=== PATIENT | female | born 1985 | race Caucasian/White ===

== ENCOUNTER 2017-04-23 21:33 | Emergency (ER) | payer MEDICAID ==
[2017-04-23 21:40] VITALS: BP 127/88
--- NOTE | 2017-04-23 22:05 | ED Physician Documentation ---
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 - Present Medications Home Medications: Ambulatory Orders Medication Instructions Recorded Confirmed Cephalexin [Keflex] 500 mg PO Q6HR 7 Days 01/24/16 - Allergies Allergies/Adverse Reactions: Allergies Allergy/AdvReac Type Severity Reaction Status Date / Time No Known Drug Allergies Allergy Verified 04/23/17 21:40 - Social History Does the pt smoke?: Yes Smoking Status: Current every day smoker Does the pt drink ETOH?: No Does the pt have substance abuse?: Yes Substance Use and Type: Heroin - Immunizations Immunizations are current?: Yes - POLST Patient has POLST: No Results - Vitals Vitals: Vital Signs - 24 hr 04/23/17 21:35 Temperature 37.2 C Heart Rate 97 Respiratory 17 Rate Blood Pressure 127/88 H O2 Saturation 100 Oxygen O2 Source Room air
== END 2017-04-23 22:10 | disposition left against medical advice (07) ==
LOC: ED 21:33
DX: Z53.21 Procedure and treatment not carried out due to patient leaving prior to being seen by health care provider (principal)

== ENCOUNTER 2017-07-13 19:49 | Outpatient (CLI) | payer MEDICAID | END 2017-07-13 19:50 | disposition home or self-care (01) | LOC: LAB 19:49 | DX: Z01.89 Encounter for other specified special examinations (principal) ==

== ENCOUNTER 2017-07-13 20:05 | Emergency (ER) | payer MEDICAID ==
--- NOTE | 2017-07-13 20:06 | ED Physician Documentation ---
History of Present Illness - Stated complaint Stated Complaint: [facility] - History obtained from History obtained from: Patient, Police - History of Present Illness Timing: Other (Brought in by state patrol for fit for shelter screening because of opiate abuse. There was a concern for potential abscess in the right upper extremity and she has been injecting there. 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 - Present Medications Home Medications: Ambulatory Orders Medication Instructions Recorded Confirmed Cephalexin [Keflex] 500 mg PO Q6HR 7 Days 01/24/16 - Allergies Allergies/Adverse Reactions: Allergies Allergy/AdvReac Type Severity Reaction Status Date / Time No Known Drug Allergies Allergy Verified 04/23/17 21:40 - Social History Does the pt smoke?: Yes Smoking Status: Current every day smoker Does the pt drink ETOH?: No Does the pt have substance abuse?: Yes - Immunizations Immunizations are current?: Yes - POLST Patient has POLST: No PD ED PE NORMAL - Vitals Vital signs reviewed: Yes - General General: Alert and oriented X 3, No acute distress - HEENT HEENT: PERRL, EOMI - Neck Neck: Supple, no meningeal sign, No bony TTP - Extremities Extremities: Other (Multiple track castillo in the antecubital fossa but there is no evidence of abscess at this time, no warmth or redness, full range of motion. ) - Neuro Neuro: Alert and oriented X 3, Normal speech Results - Vitals Vitals: Oxygen O2 Source Room air Departure - Departure Disposition: Home, Self Care Clinical Impression: Heroin abuse Condition: Stable
== END 2017-07-13 20:15 | disposition home or self-care (01) ==
LOC: ED 20:05
DX: F11.10 Opioid abuse, uncomplicated (principal)
CPT/HCPCS: 99281

== ENCOUNTER 2017-09-21 15:01 | Outpatient (CLI) | payer OTHER, MEDICAID | END 2017-09-21 15:02 | disposition home or self-care (01) | LOC: LAB 15:01 | PROVIDERS: ATTEND Pathology Blood Banking & Transfusion Medicine | DX: Z01.89 Encounter for other specified special examinations (principal) ==

== ENCOUNTER 2019-05-10 13:34 | Emergency (ER) | payer MEDICAID ==
--- NOTE | 2019-05-10 13:37 | ED Physician Documentation ---
PD HPI FEMALE - Stated complaint Stated Complaint: BLEEDING - History obtained from History obtained from: Patient - History of Present Illness Timing - onset: How many weeks ago (1) Timing - duration: Weeks (1) Timing - details: Abrupt onset, Still present (She states she had onset of vaginal bleeding consistent with menstrual period but heavier. She has been using initially 1-2 pads per hour the first couple of days and now still a pad every couple of hours. She denies any feeling of dizzy or lightheadedness. She is having intermittent lower abdominal crampy pains. She denied any vaginal discharge rash or sores or odor. Her prior. To that was only 2 weeks ago and was normal for her. She states her periods have been fairly regular in the recent past.) Associated symptoms: Pelvic pain (intermittent cramping), Vaginal bleeding. No: Back pain, Vaginal pain, Vaginal discharge, Genital sore/lesion, Dysuria Contributing factors: No: , Exposed to STD Similar symptoms before: Has not had sx before Recently seen: Clinic (seen at [facility] yesterday with negative preg test and UA. 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 - Present Medications Home Medications: Ambulatory Orders Medication Instructions Recorded Confirmed Cephalexin [Keflex] 500 mg PO Q6HR 7 Days capsule 01/24/16 Naproxen 375 mg PO BID #20 tablet 05/10/19 Norethindrone-E.estradiol-Iron 1 each PO DAILY #1 packet 05/10/19 [Loestrin Fe 1.5-30 Tablet] - Allergies Allergies/Adverse Reactions: Allergies Allergy/AdvReac Type Severity Reaction Status Date / Time No Known Drug Allergies Allergy Verified 04/23/17 21:40 - Social History Does the pt smoke?: Yes Smoking Status: Current every day smoker Does the pt drink ETOH?: No Does the pt have substance abuse?: Yes - Immunizations Immunizations are current?: Yes - POLST Patient has POLST: No PD ED PE NORMAL - Vitals Vital signs reviewed: Yes - General General: Alert and oriented X 3, No acute distress, Well developed/nourished - Neck Neck: Supple, no meningeal sign, No adenopathy - Cardiac Cardiac: RRR, No murmur - Respiratory Respiratory: Clear bilaterally - Abdomen Abdomen: Normal bowel sounds, Soft, Non tender, Non distended - Back Back: No CVA TTP - Derm Derm: Normal color, Warm and dry - Neuro Neuro: Alert and oriented X 3, No motor deficit, Normal speech Results - Vitals Vitals: Vital Signs - 24 hr 05/10/19 05/10/19 13:38 15:17 Temperature 36.5 C 36.8 C Heart Rate 73 63 Respiratory 18 16 Rate Blood Pressure 126/79 119/74 O2 Saturation 98 100 Oxygen O2 Source Room air - Labs Labs: Laboratory Tests 05/10/19 05/10/19 05/10/19 14:13 14:13 14:13 WBC 7.7 RBC 3.96 L Hgb 11.9 L Hct 35.3 L MCV 89.1 MCH 30.1 MCHC 33.7 RDW 12.0 Plt Count 207 MPV 11.3 H Neut # (Auto) 5.1 Lymph # (Auto) 1.9 [place] # (Auto) 0.5 Eos # (Auto) 0.1 Baso # (Auto) 0.0 Absolute Nucleated RBC 0.00 Nucleated RBC % 0.0 Sodium 139 Potassium 4.0 Chloride 106 Carbon Dioxide 24 Anion Gap 9.0 BUN 12 Creatinine 0.6 Estimated GFR (MDRD) 117 Glucose 99 Calcium 8.8 Total Bilirubin 0.6 AST 23 ALT 25 Alkaline Phosphatase 42 Total Protein 6.7 Albumin 3.7 Globulin 3.0 Albumin/Globulin Ratio 1.2 Lipase 24 TSH Serum HCG, Qual NEGATIVE 05/10/19 14:23 WBC RBC Hgb Hct MCV MCH MCHC RDW Plt Count MPV Neut # (Auto) Lymph # (Auto) [place] # (Auto) Eos # (Auto) Baso # (Auto) Absolute Nucleated RBC Nucleated RBC % Sodium Potassium Chloride Carbon Dioxide Anion Gap BUN Creatinine Estimated GFR (MDRD) Glucose Calcium Total Bilirubin AST ALT Alkaline Phosphatase Total Protein Albumin Globulin Albumin/Globulin Ratio Lipase TSH 1.04 Serum HCG, Qual - Rads (name of study) pelvic U/S Radiology: Prelim report reviewed (globular appearance c/w adenomyosis. No cysts, no free fluid. Normal ovaries. ), See rad report PD MEDICAL DECISION MAKING - ED course Complexity details: reviewed results (it took awhile to get U/S and report, so patient must have gotten impatient and left without notifying staff. Was about to tell her results and discharge her. Will have nursing call her with results, instructions, follow up and Rx to pharmacy. ), considered differential, d/w patient Departure - Departure Disposition: ED [place] Clinical Impression: Dysfunctional uterine bleeding Condition: Stable Record reviewed to determine appropriate education?: Yes Instructions: ED Bleed Irregular Vaginal Follow-Up: Dorothy Agee MD [Provider Admit Priv/Credential] - Ada Vitale ARNP [Primary Care Provider] - Prescriptions: Naproxen 375 mg PO BID #20 tablet Norethindrone-E.estradiol-Iron [Loestrin Fe 1.5-30 Tablet] 1 each PO DAILY #1 p acket Comments: Your ultrasound showed a slightly enlarged uterus with the thickening of the wall. No cysts or fibroids or focal lesions. This enlarged lining would account for the heavier bleeding. It would commonly get treated with oral hormones. Start oral contraceptive packet but take 3 of the tablets daily for 2 days and then 2 daily for 2 or 3 days and the bleeding should decrease and stop over that time. Then finish the rest of the packet at 1 tablet daily until it is done. You could then take a normal oral contraceptive tablets daily for another month after that. Use naproxen anti-inflammatories twice daily for cramps and pains. Drink lots of fluids. Your blood count is adequate at this time so we have not lost too much blood to keep up. Follow-up with gynecology however this coming week or within the next week, call tomorrow for an appointment. This will be a good specialty to follow-up with to see if your bleeding is not decreasing what else to do or other treatment options. Discharge Date/Time: 05/10/19 17:12
[2019-05-10] MEDS ORDERED: SODIUM CHLORIDE 0.9% 1,000 ML IV ONE (14:03)
[2019-05-10 14:18] LABS: BASOPHILS % (AUTO) 0.4 %; EOSINOPHILS # (AUTO) 0.1 10^3/uL (0.0-0.7); EOSINOPHILS % (AUTO) 1.8 %; HGB - HEMOGLOBIN 11.9 g/dL (12.0-16.0); LYMPHOCYTES # (AUTO) 1.9 10^3/uL (1.5-3.5); LYMPHOCYTES % (AUTO) 24.5 %; MEAN CORPUSCULAR HEMOGLOBIN 30.1 pg (27.0-31.0); MEAN CORPUSCULAR HGB CONC 33.7 g/dL (32.0-36.0); MEAN CORPUSCULAR VOLUME 89.1 fL (81.0-99.0); MEAN PLATELET VOLUME 11.3 fL (7.9-10.8); MONOCYTES # (AUTO) 0.5 10^3/uL (0.0-1.0); MONOCYTES % (AUTO) 6.5 %; NEUTROPHILS # (AUTO) 5.1 10^3/uL (1.5-6.6); NEUTROPHILS % (AUTO) 66.4 %; PLT - PLATELET COUNT 207 10^3/uL (130-450); RED BLOOD COUNT 3.96 10^6/uL (4.20-5.40); WHITE BLOOD COUNT 7.7 x10^3/uL (4.8-10.8)
[2019-05-10 14:32] LABS: ALBUMIN 3.7 g/dL (3.2-5.5); ALBUMIN/GLOBULIN RATIO 1.2 (1.0-2.2); BILIRUBIN,TOTAL 0.6 mg/dL (0.2-1.0); CALCIUM 8.8 mg/dL (8.5-10.3); CREATININE 0.6 mg/dL (0.4-1.0); TOTAL PROTEIN 6.7 g/dL (6.7-8.2)
[2019-05-10 14:47] LABS: HCG,QUALITATIVE BLOOD NEGATIVE
[2019-05-10 15:18] VITALS: BP 119/74
--- NOTE | 2019-05-10 16:43 | Ultrasound Report ---
Reason: heavy vag bleeding for 7 days Procedure Date: 05/10/2019 Accession Number: [id number] / [id number] Procedure: US - Pelvic w/Transvag+Doppler Ltd CPT Code: FULL RESULT: EXAM: PELVIC ULTRASOUND WITH DOPPLERS CLINICAL HISTORY: Heavy vag bleeding for 7 days. COMPARISON: None available TECHNIQUE: Realtime transabdominal imaging performed to identify the uterus and adnexa and as an overview of other pelvic structures, followed by transvaginal imaging for better assessment of the endometrium and adnexa, with static image documentation. Color flow imaging and Doppler spectral analysis was performed to evaluate blood flow to the ovaries given pelvic pain and clinical concern for ovarian torsion. FINDINGS: Uterus: 9.5 x 5.3 x 6.1 cm, volume 161 cc. Anteverted position. Globular appearance with mildly heterogeneous myometrium. Masses: None. Endometrium: 3 mm. The junctional zone is somewhat indistinct. Cervix: Unremarkable. Right Ovary: 3.0 x 1.0 x 2.3 cm, volume 3.7 cc. Normal echotexture. Arterial and venous blood flow are present. PSV 11 cm/sec. RI 0.60. Adnexa are unremarkable. Left Ovary: 3.5 x 3.0 x 3.3 cm, volume 18 cc. Normal echotexture. Arterial and venous blood flow are present. PSV 8.7 cm/sec. RI 0.60. Adnexa are unremarkable. Free Fluid: None. Other: None. IMPRESSION: 1. Globular appearance of the uterus with mildly heterogeneous myometrium. Uterine adenomyosis could have this appearance and could be further evaluated with pelvis MRI on a routine basis. 2. Arterial and venous blood flow are present to the ovaries bilaterally. RADIA
== END 2019-05-10 17:12 | disposition left against medical advice (07) ==
LOC: ED 13:34
DX: N93.8 Other specified abnormal uterine and vaginal bleeding (principal); F17.200 Nicotine dependence, unspecified, uncomplicated
CPT/HCPCS: 36415; 76830; 76856; 80053; 83690; 84443; 84703; 85025; 93976; 99283; 99284